=== PATIENT | male | born 1970 | race Caucasian/White ===

== ENCOUNTER 2021-01-26 15:42 | Day surgery (SDC) | payer OTHER ==
[2021-01-26] MEDS ORDERED: Decadron 4 MG INJ IV ONE (15:43)
[2021-01-26] MEDS ORDERED: Sodium Chloride 0.9(Preservative Free) 10 ML IJ ONE (15:43)
[2021-01-26] MEDS ORDERED: Xylocaine 1% Vial 30 ML PF IJ ONE (15:43)
[2021-01-26] MEDS ORDERED: Lactated Ringers 1,000 ML IV ONE (16:36)
--- NOTE | 2021-01-26 17:29 | XRAY ---
Indication: Cervical CALLUM. Intraoperative fluoroscopy provided for 44 seconds. 3 digital spot image submitted for interpretation demonstrates midline posterior needle tip projecting just posterior to the cervical thoracic junction. Small amount of contrast injected for needle tip placement. Correlate with intraoperative findings/report.
--- NOTE | 2021-01-26 17:39 | XRAY ---
44 seconds of fluoroscopy was used in surgery for a cervical CALLUM.
== END 2021-01-26 17:16 | disposition home or self-care (01) ==
LOC: SDC-PAIN 15:42
PROVIDERS: ATTEND Psychiatry & Neurology Pain Medicine
DX: M54.12 Radiculopathy, cervical region (principal); K21.9 Gastro-esophageal reflux disease without esophagitis; G47.30 Sleep apnea, unspecified; Z79.899 Other long term (current) drug therapy
CPT/HCPCS: 62321; 72040; 77003; J1100; J2001; Q9966

== ENCOUNTER 2022-05-24 15:13 | Day surgery (SDC) | payer OTHER, BC ==
[2022-05-24] MEDS ORDERED: XYLOCAINE-MPF 1% 5ML SDV IJ ONE (15:14)
[2022-05-24] MEDS ORDERED: Sodium Chloride 0.9(Preservative Free) 10 ML IJ ONE (15:14)
[2022-05-24] MEDS ORDERED: Decadron 4 MG INJ IV ONE (15:14)
[2022-05-24] MEDS ORDERED: Lactated Ringers 1,000 ML IV ONE (16:38)
[2022-05-24] MEDS ORDERED: VERSED 5 MG/5 ML ONE (17:52)
--- NOTE | 2022-05-24 19:41 | XRAY ---
Indication: Cervical CALLUM. Intraoperative fluoroscopy provided for 37 seconds. 2 digital spot image submitted for interpretation demonstrates posterior midline needle tip projecting posterior to cervical thoracic junction. Small amount of contrast injected for needle tip placement. Correlate with intraoperative findings/report.
--- NOTE | 2022-05-25 09:20 | XRAY ---
37 seconds fluoroscopy time in surgery for cervical CALLUM.
== END 2022-05-24 18:10 | disposition home or self-care (01) ==
LOC: SDC-PAIN 15:13
PROVIDERS: ATTEND Psychiatry & Neurology Pain Medicine
DX: M54.12 Radiculopathy, cervical region (principal); Z79.899 Other long term (current) drug therapy
CPT/HCPCS: 62321; 72040; 77003; J1100; J2250; Q9966

== ENCOUNTER 2025-02-18 14:03 | Day surgery (SDC) | payer OTHER, BC ==
[2025-02-18] MEDS ORDERED: LIDOCAINE HCL 1% 50 MG/5 ML VL IJ ONE (14:04)
[2025-02-18] MEDS ORDERED: dexAMETHasone sodium phosphate IJ ONE (14:04)
[2025-02-18] MEDS ORDERED: Sodium Chloride 0.9(Preservative Free) 10 ML IJ ONE (14:04)
[2025-02-18] MEDS ORDERED: Lactated Ringers 1,000 ML IV ONE (18:18)
--- NOTE | 2025-02-18 21:04 | XRAY ---
Indication: Cervical CALLUM. Intraoperative fluoroscopy provided for 44 seconds. Single digital spot image submitted for interpretation demonstrates posterior needle tip projecting over cervicothoracic junction. Small amount of contrast injected for needle tip placement. Correlate with intraoperative findings/report.
--- NOTE | 2025-02-20 10:13 | XRAY ---
44 seconds of fluoroscopy was used in surgery for a cervical CALLUM.
== END 2025-02-18 17:15 | disposition home or self-care (01) ==
LOC: SDC-PAIN 14:03
PROVIDERS: ATTEND Psychiatry & Neurology Pain Medicine
DX: M54.12 Radiculopathy, cervical region (principal)
CPT/HCPCS: 62321; 72040; 82947; J1100; Q9966

== ENCOUNTER 2025-08-12 13:48 | Day surgery (SDC) | payer OTHER ==
[2025-08-12] MEDS ORDERED: LIDOCAINE HCL 2% 100 MG/5 ML IJ ONE (13:49)
[2025-08-12] MEDS ORDERED: propofoL IV ONE ×2 (16:19→16:28)
[2025-08-12] MEDS ORDERED: Lactated Ringers 1,000 ML IV ONE (17:06)
--- NOTE | 2025-08-13 08:38 | XRAY ---
Indication: Left C3-C5 MBB. Intraoperative fluoroscopy provided for 42 seconds. 2 digital spot images submitted for interpretation demonstrates posterior needle tips projecting over expected left C3-C5 nerve roots. Correlate with intraoperative findings/report.
--- NOTE | 2025-08-13 09:35 | XRAY ---
42 seconds of fluoroscopy was used in surgery for left C3-C5 MBB.
== END 2025-08-12 16:53 | disposition home or self-care (01) ==
LOC: SDC-PAIN 13:48
PROVIDERS: ATTEND Psychiatry & Neurology Pain Medicine
DX: M47.812 Spondylosis without myelopathy or radiculopathy, cervical region (principal); R73.03 Prediabetes